=== PATIENT | female | born 1980 | race Caucasian/White ===

== ENCOUNTER → 2023-05-04 07:27 | Outpatient (REF) | payer OTHER, SELFPAY | LOC: HWLAB 07:27 | PROVIDERS: ATTENDING PHYSICIAN Family Medicine | DX: M54.6 Pain in thoracic spine (principal) | CPT/HCPCS: 72072 ==

== ENCOUNTER → 2023-05-20 10:09 | Outpatient (REF) | payer OTHER, SELFPAY | LOC: HWWDC 10:09 | PROVIDERS: ATTENDING PHYSICIAN Family Medicine; REFERRING PHYSICIAN Obstetrics & Gynecology | DX: Z12.31 Encounter for screening mammogram for malignant neoplasm of breast (principal) | CPT/HCPCS: 77063; 77067 ==

== ENCOUNTER → 2023-05-27 15:52 | Outpatient (REF) | payer OTHER, SELFPAY | LOC: HWRAD 15:52 | PROVIDERS: ATTENDING PHYSICIAN Family Medicine | DX: M54.6 Pain in thoracic spine (principal) | CPT/HCPCS: 72128 ==

== ENCOUNTER → 2023-07-12 06:34 | Day surgery (SDC) | payer OTHER, SELFPAY | LOC: GI 06:34 | PROVIDERS: ATTENDING PHYSICIAN Internal Medicine | DX: Z12.11 Encounter for screening for malignant neoplasm of colon (principal); D12.0 Benign neoplasm of cecum; D12.3 Benign neoplasm of transverse colon; K64.9 Unspecified hemorrhoids | CPT/HCPCS: 45380; 88305 ==

== ENCOUNTER → 2024-07-31 13:24 | Outpatient (REF) | payer OTHER, SELFPAY | LOC: HWWDC 13:24 | PROVIDERS: ATTENDING PHYSICIAN Obstetrics & Gynecology; FAMILY PHYSICIAN Family Medicine | DX: Z12.31 Encounter for screening mammogram for malignant neoplasm of breast (principal) | CPT/HCPCS: 77063; 77067 ==